=== PATIENT | male | born 2000 | race Caucasian/White ===

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

== ENCOUNTER 2023-04-12 23:58 | Emergency (ER) | payer BC, SELFPAY ==
[2023-04-13 00:04] VITALS: BP 149/92; PULSE 70; RESP 20; TEMP 36.6; O2SAT 99
[2023-04-13 02:43] VITALS: PULSE 73
[2023-04-13 03:50] VITALS: PULSE 53; RESP 18; O2SAT 98
[2023-04-13] MEDS: SODIUM CHLORIDE 0.9% IV 1,000 ML 999 ML IV CONT (04:27)
[2023-04-13 04:33] LABS: Basophils Absolute Auto 0.1 K/mm3 (0.0-0.1); Eosinophils Absolute Auto 0.2 K/mm3 (0-0.3); Eosinophils Percent Auto 3.4 % (0-4.4); Hematocrit 46.2 % (42.0-52.0); Hemoglobin 16.2 g/dL (14.0-18.0); Immature Granulocyte Absolute 0.04 K/mm3 (0.00-0.031); Immature Granulocyte Percent A 0.6 % (0-0.5); Lymphocytes Absolute Auto 1.56 K/mm3 (0.9-3.2); Lymphocytes Percent Auto 22.8 % (18.3-44.2); Mean Corpuscular HGB Conc 35.1 g/dl (32-36); Mean Corpuscular Hemoglobin 32.3 pg (26-34); Mean Corpuscular Volume 92.2 fl (80-100); Monocytes Absolute Auto 0.8 K/mm3 (0.1-0.6); Monocytes Percent Auto 11.4 % (2.6-8.5); Neutrophils Absolute Auto 4.2 K/mm3 (1.3-6.7); Neutrophils Percent Auto 60.8 % (45.5-73.1); Platelet Count Result 241 k/mm3 (150-375); Red Blood Count 5.01 M/mm3 (4.6-6.20); Red Cell Distribution Width 11.9 % (11.5-14.5); White Blood Count 6.9 K/mm3 (4.5-10.0)
[2023-04-13 04:49] LABS: Monoscreen Negative (Negative); Negative Monotest Control Negative (Negative); Positive Monotest Control Positive (Positive)
[2023-04-13 04:58] LABS: Alanine Aminotransferase 37 U/L (6-50); Albumin Level 4.9 g/dL (3.5-5.1); Alkaline Phosphatase 56 U/L (38-126); Anion Gap 13 mmol/L (8-16); Aspartate Amino Transferase 37 U/L (17-59); Bilirubin,Total 0.8 mg/dL (0.2-1.3); Blood Urea Nitrogen 12 mg/dL (9-20); Calcium 9.6 mg/dL (8.4-10.2); Carbon Dioxide 24 mmol/L (22-30); Chloride 101 mmol/L (98-107); Estimated CRCL calculation 152 ml/min; Estimated Glomerular Filt Rate > 60; Glucose 87 mg/dL (65-110); Lactic Acid Reflex 0.9 mmol/L (0.7-2.0); Sodium 138 mmol/L (137-145)
[2023-04-13 05:19] LABS: Strep Group A RT-PCR NOT DETECTED (Negative)
[2023-04-13 05:21] VITALS: PULSE 66; RESP 20; O2SAT 98
[2023-04-13 05:30] LABS: Influenza A QL RT-PCR Negative (Negative); Influenza B QL RT-PCR Negative (Negative); RSV RNA, RT-PCR Negative (Negative); SARS-CoV-2 RNA PCR Negative (Negative)
--- NOTE | 2023-04-13 06:28 | ED.GENADULT ---
HPI - General Adult General Chief complaint: Unspecified Stated complaint: numbness Time Seen by Provider: 04/13/23 04:06 History of Present Illness HPI narrative: patient is a 22-year-old gentleman who presents emerged from with chief complaint burning sensation to his hands the patient also reports that he has had lesions present on his extremities some patient does have history of eczema the patient states the elbow feels though his skin is inflamed on patient also reports that he has had a sore throat with this as well Related Data Home Medications Medication Instructions Recorded Confirmed albuterol sulfate 90 mcg/actuation inhalation 01/28/20 aerosol inhaler (ProAir HFA) Allergies Allergy/AdvReac Type Severity Reaction Status Date / Time epinephrine AdvReac Loss of Verified 04/13/23 02:21 Consciousness Dog Dander Allergy Difficulty Uncoded 04/13/23 02:21 Breathing Review of Systems Review of Systems: A 10 system review of systems was completed on the patient and is negative except for what is stated in the HPI. Nursing and ancillary documentation was reviewed. Exam Narrative: GENERAL: Well-appearing, well-nourished, and in no acute distress. HEAD: Normocephalic, atraumatic. EYES: PERRLA and EOMI. ENT: Nares clear, no rhinorrhea or epistaxis. Mucous membranes moist. there is petechiae present in the posterior oropharynx NECK: Supple. CHEST: Clear to auscultation. No respiratory distress. HEART: Regular rate and rhythm. No murmur heard. Normal peripheral pulses. ABDOMEN: Soft, nontender, nondistended, normal active bowel sounds. EXTREMITIES: Normal range of motion. No edema. SKIN: Warm, dry, there is an eczematous rash of the extremities and slight areas of erythema present on the fingers. NEURO: No focal deficits. Alert and oriented x3. PSYCH: Normal mood and affect. Course Vital Signs Vital signs: Vital Signs Temperature 36.6 C 04/13/23 00:04 Pulse Rate 70 04/13/23 00:04 Respiratory Rate 20 04/13/23 00:04 Blood Pressure 149/92 H 04/13/23 00:04 Pulse Oximetry 99 04/13/23 00:04 Oxygen Delivery Room Air 04/13/23 00:04 Temperature 36.6 C 04/13/23 00:04 Pulse Rate 66 04/13/23 05:21 Respiratory Rate 20 04/13/23 05:21 Blood Pressure 149/92 H 04/13/23 00:04 Pulse Oximetry 98 04/13/23 05:21 Oxygen Delivery Room Air 04/13/23 00:04 Medical Decision Making MDM Narrative Medical decision making narrative: differential diagnosis includes mono, strep pharyngitis, COVID, influenza, RSV laboratory studies were obtained on the patient and showed a normal mono test, COVID flu and strep were negative electrolytes are within normal limits the patient received 2 mg of IV Decadron emerged from patient discharged home on doxycycline and will also be given a prescription for prednisone. Vital Signs Vital Signs: Vital Signs Temperature 36.6 C 04/13/23 00:04 Pulse Rate 70 04/13/23 00:04 Respiratory Rate 20 04/13/23 00:04 Blood Pressure 149/92 H 04/13/23 00:04 Pulse Oximetry 99 04/13/23 00:04 Oxygen Delivery Room Air 04/13/23 00:04 Temperature 36.6 C 04/13/23 00:04 Pulse Rate 66 04/13/23 05:21 Respiratory Rate 20 04/13/23 05:21 Blood Pressure 149/92 H 04/13/23 00:04 Pulse Oximetry 98 04/13/23 05:21 Oxygen Delivery Room Air 04/13/23 00:04 Lab Data 04/13/23 04:24 04/13/23 04:24 Labs: Lab Results 04/13/23 Range/Units 04:24 WBC 6.9 (4.5-10.0) K/mm3 RBC 5.01 (4.6-6.20) M/mm3 Hgb 16.2 (14.0-18.0) g/dL Hct 46.2 (42.0-52.0) % MCV 92.2 (80-100) fl MCH 32.3 (26-34) pg MCHC 35.1 (32-36) g/dl RDW 11.9 (11.5-14.5) % Plt Count 241 (150-375) k/mm3 MPV 10.0 (7.4-10.4) fl Immature Gran % (Auto) 0.6 H (0-0.5) % Neut % (Auto) 60.8 (45.5-73.1) % Lymph % (Auto) 22.8 (18.3-44.2) % [place] % (Auto) 11.4 H (2.6-8.5) % Eos % (A
[2023-04-13 06:34] VITALS: BP 137/62; PULSE 94; RESP 20; O2SAT 98
== END 2023-04-13 06:42 | disposition home or self-care (01) ==
PROVIDERS: Emergency Provider Emergency Medicine; PCP Pediatrics
DX: J02.9 Acute pharyngitis, unspecified (principal); L03.90 Cellulitis, unspecified; Z20.822 Contact with and (suspected) exposure to COVID-19
CPT/HCPCS: 36415; 80053; 83605; 83735; 85025; 86308; 87637; 87651; 96361; 96374; 99284; J1100; J7030

== ENCOUNTER 2023-10-26 10:56 | Outpatient (CLI) | payer BC, SELFPAY ==
--- NOTE | ~2023-10-26 | MR_ITS ---
EXAMINATION: MR knee RT wo con DATE: 10/26/2023 11:31 INDICATION: Acute right knee pain. TECHNIQUE: Magnetic resonance imaging (MRI) of the right knee was performed without intravenous contr ast. Sequences included axial PD-weighted FS FSE, coronal PD-weighted FSE and PD-weighted FS FSE, sag ittal PD-weighted FSE, and sagittal T2-weighted FS FSE. COMPARISON: None. FINDINGS: Medial compartment: Medial meniscus is normal. Medial compartment cartilage is normal. Lateral compartment: Lateral meniscus is normal. Lateral compartment cartilage is normal. Patellofemoral compartment: Patellar cartilage is normal. Trochlear cartilage is normal. Ligaments and tendons: The anterior and posterior cruciate ligaments are normal. Medial collateral ligament is normal. There is a partial tear of fibular collateral ligament proximally. The patellar tendon is normal. Fluid: There is a small knee joint effusion. IMPRESSION: 1. Partial tear of fibular collateral ligament (grade 2 sprain). 2. Small knee joint effusion. Reviewed, dictated and finalized at location E.
== END 2023-10-26 10:57 ==
LOC: GOSHIMG 10:57
PROVIDERS: PCP Pediatrics; Visit Provider Family Medicine Sports Medicine
DX: S83.421A Sprain of lateral collateral ligament of right knee, initial encounter (principal); M25.461 Effusion, right knee
CPT/HCPCS: 73721

== ENCOUNTER 2024-11-29 17:24 | Emergency (ER) | payer BC, SELFPAY ==
[2024-11-29 17:34] VITALS: BP 137/83; PULSE 97; RESP 16; TEMP 36.3; O2SAT 97
--- NOTE | 2024-11-29 18:02 | ED.SKABFB ---
HPI - Skin/Abscess/Foreign Bdy General Chief complaint: Skin/Abscess/Foreign Body Stated complaint: Staph Infection Time Seen by Provider: 11/29/24 17:51 Source: patient and RN notes reviewed Mode of arrival: ambulatory Limitations: no limitations History of Present Illness HPI narrative: Patient presents today complaining of itching lesions of the right 3rd and 4th fingers x2 weeks, worsening over the last 3 days. Patient has applied some old mupirocin and taken a few doses of old Keflex without improvement. Believes he has a staph infection. 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 History of eczema Related Data Home Medications ?Medication ?Instructions ?Recorded ?Confirmed ?Last Taken ?Type albuterol sulfate 90 mcg/actuation inhalation 01/28/20 Unknown History aerosol inhaler (ProAir HFA) Allergies Allergy/AdvReac Type Severity Reaction Status Date / Time epinephrine AdvReac Loss of Verified 04/13/23 02:21 Consciousness Dog Dander Allergy Difficulty Uncoded 04/13/23 02:21 Breathing PMFSH Past Medical History Medical History (Updated 11/29/24 @ 18:08 by Hilda Martines, [facility], ) Eczema Comments At time of signature, I have reviewed and agree with nursing past medical, surgical, social and family history unless otherwise noted. Please see nursing chart for further information. There is no relevant family history pertinent to the presenting complaint Exam Narrative: GENERAL: Well-appearing, well-nourished, and in no acute distress. HEAD: Normocephalic, atraumatic. EYES: EOMI. No redness or drainage. Conjunctivae normal. ENT: Mucous membranes pink and moist. NECK: Normal AROM. CHEST: No respiratory distress. EXTREMITIES: Right hand: Erythematous lesions of the 3rd and 4th finger. Difficult to visualize initial lesion as his skin has been peeled off multiple time causing the lesion to be deeper and deeper with scabbed center. No active drainage or fluctuance. Mild edema surrounding each lesion. Distal sensation intact. Capillary refill normal. Full range of motion. SKIN: Warm, dry, no rash. Capillary refill normal. Normal skin turgor. NEURO: No focal deficits. Alert and oriented x3. Gait steady. PSYCH: Normal affect. No signs of depression or anxiety. Course Course Level of Care: Express Care Visit Vital Signs Vital signs: Vital Signs Temperature 97.3 F L 11/29/24 17:34 Pulse Rate 97 11/29/24 17:34 Respiratory Rate 16 11/29/24 17:34 Blood Pressure 137/83 11/29/24 17:34 Pulse Oximetry 97 11/29/24 17:34 Oxygen Delivery Room Air 11/29/24 17:34 Temperature 97.3 F L 11/29/24 17:34 Pulse Rate 97 11/29/24 17:34 Respiratory Rate 16 11/29/24 17:34 Blood Pressure 137/83 11/29/24 17:34 Pulse Oximetry 97 11/29/24 17:34 Oxygen Delivery Room Air 11/29/24 17:34 Reviewed MDM - Skin/Abscess/Foreign Bdy MDM Narrative Medical decision making narrative: 23-year-old male patient presents with lesions on the right 3rd and 4th finger x2 weeks, worse over the last 3 days. Lesions are pruritic. Believes he has staph infection. Mupirocin and Keflex from old prescriptions have not been helpful although he has only use them a few times. Upon exam, lesions have been peeled back several times so difficult to tell what they looked like initially, scabbed Centers without drainage or fluctuance. Will treat with some oral Keflex and topical mupirocin for possible bacterial etiology. Vital signs stable. Recommend washing daily, applying mupirocin, and keeping covered, especially if patient is going to be doing jujitsu. Patient agrees with plan. Anticipatory guidance given. Differential Diagnosis Differential diagnosis: Likely abscess of skin or subcutaneous tissue, cellulitis, eczema, impetigo and other (Dyshidrotic eczema, herpetic thomas) Critical Care Time Critical Care Time Critical Care Time: No Discharge Plan Discharge Clinical Impression: Cellulitis Qualifiers: Site of cellulitis: extremity Site of cellulitis of extremity: finger Laterality: right Qualified Code(s): L03.011 - Cellulitis of right finger Patient Disposition: Home Condition: Stable Instructions: Antibiotic Form, Cellulitis (ED) Additional Instructions: Please take the Keflex and use the mupirocin as directed. Wash your hand daily with soap and water, dry, and use mupirocin. Keep covered, especially if your going to be doing jujitsu. Take Tylenol or ibuprofen if needed for discomfort. Follow-up with your PCP with any additional concerns or worsening symptoms. Your blood pressure was elevated above 120/80 today at Urgent Care. This puts you above the threshold for follow up. Please schedule a followup visit with your personal physician as soon as possible, for further evaluation and treatment. Even blood pressure exceeding 120/80 may indicate pre-hypertension. Patient Language: Greek Prescriptions: New cephalexin 500 mg capsule 500 mg PO Q6H 7 Days Qty: 28 0RF mupirocin 2 % ointment 1 applic topical BID 7 Days Qty: 22 0RF No Action albuterol sulfate [ProAir HFA] 90 mcg/actuation HFA aerosol inhaler INHALATION Follow-up/Referrals: PHYSICIAN,MACHINE I ENGRAVER [Primary Care Provider] - Time of Disposition: 18:08
== END 2024-11-29 18:14 | disposition home or self-care (01) ==
PROVIDERS: Emergency Provider Nurse Practitioner
DX: L03.011 Cellulitis of right finger (principal)
CPT/HCPCS: 99213; G0463